=== PATIENT | male | born 1965 | race Caucasian/White ===

== ENCOUNTER → 2017-07-02 | Outpatient (CLI) | payer OTHER ==
[~2017-07-02] MED LIST: AMLODIPINE BESY10 MG PO; ASPIR 8181 MG PO; CYMBALTA30 MG PO; GABAPENTIN 100100 MG PO; INDOMETHACIN 2525 MG PO; LISINOPRIL10 MG PO; NEURONTIN100 MG PO
--- NOTE | ~2017-07-02 | EKG ---
[address] [address] ELECTROCARDIOGRAM REPORT Name: HUMPHREY ARAUJO Room #: REG [facility]#: [id number] Admission: 07/02/17 Attend Phys: Alex Nicolas, Discharge: Date of : 67 Report #: [id number] THIS REPORT FOR: //name// [facility] Test Date: 2017-07-02 Test Time: 06:32:37 Pat Name: HUMPHREY ARAUJO Department: Room: Gender: Human Resources Executive Assistant: RUTH : 1965 Requested By: Alex Nicolas Order Number: [id number] MD: Rohith Medina Measurements Intervals [place] Rate: 84 P: 62 CT: 143 QRS: 20 QRSD: 83 T: 14 QT: 352 QTc: 417 Interpretive Statements Sinus rhythm No significant abnormality No previous ECG available for comparison Electronically Signed On 07-02-2017 8:16:33 THREAD CHECKER by Rohith Medina [email or web address] <ELECTRONICALLY SIGNED> By: Rohith Medina MD, [facility] 07/02/17 0816 0632 0632 Rohith Medina MD, FAC /EPI
== END | disposition home or self-care (01) ==
LOC: LITH 05:58
DX: N20.0 Calculus of kidney (principal); Z88.0 Allergy status to penicillin; Z88.8 Allergy status to other drugs, medicaments and biological substances